=== PATIENT | female | born 2000 | race Two or more races ===

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

== ENCOUNTER 2022-04-16 00:35 | Emergency (ER) | payer OTHER ==
[~2022-04-16] VITALS: Ht 167.6 cm; Wt 75.3 kg
[2022-04-16] MEDS ORDERED: SODIUM CHLORIDE 0.9% 1000ML 1,000 ML IV STA (00:56)
[2022-04-16] MEDS ORDERED: DIPHENHYDRAMINE HCL INJ 50 MG/ML VIAL IV ONE (01:00)
[2022-04-16] MEDS ORDERED: FAMOTIDINE 20 MG/2 ML VIAL IV ONE ×2 (01:00→01:23)
[2022-04-16] MEDS ORDERED: ONDANSETRON HCL INJ 2MG/ML 2ML 2 MG/ML VIAL IV ONE (01:00)
[2022-04-16] MEDS ORDERED: ONDANSETRON HCL INJ 2MG/ML 2ML 2 MG/ML VIAL ONE (01:22)
[2022-04-16] MEDS ORDERED: DIPHENHYDRAMINE HCL INJ 50 MG/ML VIAL ONE (01:23)
[2022-04-16] MEDS ORDERED: SODIUM CHLORIDE 0.9% 1000ML 1,000 ML ONE (01:23)
[2022-04-16] MEDS ORDERED: ONDANSETRON ODT4 MG PO (01:41)
[2022-04-16 02:15] VITALS: BP 100/73
== END 2022-04-16 02:15 | disposition home or self-care (01) ==
LOC: FSED 00:52
DX: R07.89 Other chest pain (principal); F41.9 Anxiety disorder, unspecified; R11.2 Nausea with vomiting, unspecified
CPT/HCPCS: 80053; 81003; 81025; 82553; 84484; 85025; 85379; 93005; 96374; 96375; 96376; 99283; J1200; J2405; J7030